=== PATIENT | female | born 1960 | race Hispanic/Latino ===

== ENCOUNTER 2017-02-21 10:45 | Emergency (ER) | payer MEDICAID, OTHER ==
[2017-02-21 10:56] VITALS: BMI 23.3
[2017-02-21 12:07] LABS: BASO % 0.5 % (0.0-2.0); EOS # 0.1 K/uL (0.0-0.7); EOS % 1.7 % (0.0-4.0); HEMATOCRIT 41.9 % (34.0-47.0); LYMPH # 1.3 K/uL (1.0-4.3); LYMPH % 22.4 % (20.0-40.0); MEAN CELL VOLUME 93.3 fl (81.0-99.0); MEAN CORPUSCULAR HGB CONC 33.2 g/dL (33.0-37.0); MEAN PLATELET VOLUME 7.9 fl (7.2-11.7); MONO # 0.6 K/uL (0.0-0.8); MONO % 10.3 % (0.0-10.0); NEUT # 3.9 K/uL (1.8-7.0); NEUT % 65.1 % (50.0-75.0); RED CELL DISTRIBUTION WIDTH 14.9 % (11.5-14.5)
[2017-02-21 12:46] LABS: ALB/GLOB RATIO 1.4 (1.0-2.1); ALKALINE PHOSPHATASE 68 U/L (38-126); ALT/SGPT 60 U/L (9-52); AST/SGOT 39 U/L (14-36); BILIRUBIN,TOTAL 0.7 mg/dl (0.2-1.3); BLOOD UREA NITROGEN 11 mg/dl (7-17); CALCIUM 9.6 mg/dL (8.4-10.2); CARBON DIOXIDE 25 mmol/L (22-30); CHLORIDE 103 mmol/L (98-107); GFR AFRICAN-AMERICAN > 60; GLUCOSE,RANDOM 169 mg/dL (65-105); POTASSIUM 3.8 MMOL/L (3.6-5.0); SODIUM 139 mmol/l (132-148); TOTAL PROTEIN 7.6 G/DL (6.3-8.2)
[2017-02-21 12:48] LABS: PARTIAL THROMBOPLASTIN TIME 33.9 Seconds (25.6-37.1)
[2017-02-21 13:13] VITALS: RESP 18; O2SAT 99
--- NOTE | 2017-02-21 13:29 | RAD ---
HISTORY: chest pain COMPARISON: No prior. TECHNIQUE: Chest PA and lateral FINDINGS: LUNGS: No active pulmonary disease. PLEURA: No significant pleural effusion identified. No pneumothorax apparent. CARDIOVASCULAR: Normal. OSSEOUS STRUCTURES: Thoracic dextroscoliosis. VISUALIZED UPPER ABDOMEN: Normal. OTHER FINDINGS: None. IMPRESSION: No active disease.
--- NOTE | 2017-02-21 13:45 | ED PDOC ---
HPI: Chest Pain Time Seen by Provider: 02/21/17 11:24 Chief Complaint (Nursing): Chest Pain Chief Complaint (Provider): Chest pain History Per: Patient History/Exam Limitations: no limitations Onset/Duration Of Symptoms: Days (x2 weeks) Current Symptoms Are (Timing): Intermittent Episodes Associated Symptoms: Dyspnea Additional Complaint(s): Darcy Hollins is a 57 year old female, with a past medical history of asthma and hypercholesterolemia, who present to the emergency department complaining of non radiating non exertional intermittent chest pain associated with difficulty breathing, and cough onset for 2 weeks. She states she has difficulty breathing particularly at night and that her doctor told her she has problems in the liver but she didn't get any treatment and wanted to get check for her liver too. She reports her doctor, Dr. Beckford has been given her medication for gastritis for months and that all her symptoms are long time chronic problems of her liver, gastritis, and epigastric tension. PMD: Gypsy Beckford Against Medical Advice - AMA Patient Left Against Medical Advice: The patient declines admission to the hospital and wishes to leave the Emergency Department. This action is against my medical advice. This decision was made with informed refusal. The patient was told that admission to the hospital is necessary. Explanation of the reasons why were discussed. The risks of leaving were explained to the patient and include, but are not limited to, worsening of known or currently unknown conditions, permanent disability and from undiagnosed or untreated conditions. The patient has the capacity to make this informed decision and understands my explanation of the current medical problem and risks of leaving. The patient voluntarily accepts these risks and signed an AMA form documenting our conversation. The patient was given the opportunity to ask questions and reconsider. The patient was encouraged to return to the Emergency Department at any time for further care. Past Medical History Reviewed: Historical Data, Nursing Documentation, Vital Signs Vital Signs: Last Vital Signs Temp 97.6 F 02/21/17 14:30 Pulse 87 02/21/17 16:48 Resp 18 02/21/17 14:30 BP 130/78 02/21/17 14:30 Pulse Ox 99 02/21/17 16:48 - Medical History PMH: Anxiety, HTN, Hypercholesterolemia - Family History Family History: States: Unknown Family Hx - Social History Current smoker - smoking cessation education provided: Yes (Heavy smoker >10 cigarettes daily) Alcohol: None Drugs: Denies - Immunization History Hx Tetanus Toxoid Vaccination: No Hx Influenza Vaccination: No Hx Pneumococcal Vaccination: No - Allergies Allergies/Adverse Reactions: Allergies Allergy/AdvReac Type Severity Reaction Status Date / Time No Known Allergies Allergy Unverified 10/17/14 16:50 Review of Systems ROS Statement: Except As Marked, All Systems Reviewed And Found Negative Cardiovascular: Positive for: Chest Pain Respiratory: Positive for: Other (dyspnea) Physical Exam - Reviewed Nursing Documentation Reviewed: Yes Vital Signs Reviewed: Yes - Physical Exam Appears: Positive for: Well, Non-toxic, No Acute Distress Head Exam: Positive for: ATRAUMATIC, NORMAL INSPECTION, NORMOCEPHALIC Skin: Positive for: Normal Color, Warm, Dry Eye Exam: Positive for: EOMI, Normal appearance, PERRL ENT: Positive for: Normal ENT Inspection Neck: Positive for: Normal, Painless ROM, Supple Cardiovascular/Chest: Positive for: Regular Rate, Rhythm. Negative for: Murmur Respiratory: Positive for: Normal Breath Sounds. Negative for: Respiratory Distress Gastrointestinal/Abdominal: Positive for: Bowel Sounds, Soft, Tenderness (mild epigastric tenderness) Back: Positive for: Normal Inspection. Negative for: L CVA Tenderness, R CVA Tenderness Extremity: Positive for: Normal ROM Neurologic/Psych: Positive for: Alert (x3), Oriented (x3). Negative for: Motor/ Sensory Deficits - Laboratory Results Result Diagrams: 02/21/17 12:00 02/21/17 12:00 - ECG ECG Rhythm: Positive for: Normal QRS, Normal ST Segment, Sinus Rhythm (Normal) Rate: 87 O2 Sat by Pulse Oximetry: 99 (RA) Pulse Ox Interpretation: Normal Medical Decision Making Medical Decision Making: Initial Impression: Chest pain dyspnea differential include ACS, rule out PE, CHF, and other cardiac pulmonary diseases Chronic Liver disease as additional diagnosis Initial Plan: --EKG --BNP --CXR --monitoring and evaluation advisor cont. --reevaluation 1327 Chest X-ray FINDINGS: LUNGS: No active pulmonary disease. PLEURA: No significant pleural effusion identified. No pneumothorax apparent. CARDIOVASCULAR: Normal. OSSEOUS STRUCTURES: Thoracic dextroscoliosis. VISUALIZED UPPER ABDOMEN: Normal. OTHER FINDINGS: None. Scribe Attestation: Documented by Napoleon Akbar, acting as a scribe for Jermaine Sal MD Provider Scribe Attestation: All medical record entries made by the Scribe were at my direction and personally dictated by me. I have reviewed the chart and agree that the record accurately reflects my personal performance of the history, physical exam, medical decision making, and the department course for this patient. I have also personally directed, reviewed, and agree with the discharge instructions and disposition. Disposition - Clinical Impression Clinical Impression: Chest pain, Left against medical advice - Patient ED Disposition Is Patient to be Admitted: No Doctor Will See Patient In The: Office Counseled Patient/Family Regarding: Studies Performed, Diagnosis, Need For Followup - Disposition Referrals: Gypsy Beckford MD [Family Provider] - Disposition: Against Medical Advice Disposition Time: 14:12 Condition: GOOD Additional Instructions: Return for worsening. Follow up with your PCP in 1-2 days. Instructions: Chest Pain (ED) Print Language: DANISH
[2017-02-21 14:41] VITALS: BP 130/78; TEMP 97.6
[2017-02-21 16:49] VITALS: PULSE 87
--- NOTE | 2017-02-22 23:09 | CARD ---
APPROVED REPORT EKG Measurement Heart [id number] <Conclusion> Sinus rhythm with short DE Otherwise normal ECG
== END 2017-02-21 14:41 | disposition home or self-care (01) ==
LOC: H.ER 10:45
DX: R05 Cough (principal); R07.9 Chest pain, unspecified; F17.210 Nicotine dependence, cigarettes, uncomplicated; I10 Essential (primary) hypertension; F41.9 Anxiety disorder, unspecified

== ENCOUNTER 2017-06-17 05:52 | Emergency (ER) | payer MEDICAID, OTHER ==
[2017-06-17 05:52] VITALS: BMI 23.3
[2017-06-17 06:16] VITALS: TEMP 97.8; O2SAT 98
--- NOTE | 2017-06-17 06:32 | ED PDOC ---
HPI: Back Time Seen by Provider: 06/17/17 06:25 Chief Complaint (Nursing): Back Pain Chief Complaint (Provider): low back pain History Per: Patient History/Exam Limitations: no limitations Onset/Duration Of Symptoms: Days (5), Gradual Current Symptoms Are (Timing): Still Present Quality Of Discomfort: Sharp Severity: Moderate Previous Symptoms: Back Pain Associated Symptoms: None Exacerbating Factor(s): Turning, Movement, Sitting, Standing Additional Complaint(s): 57yo female c/o low back pain R>L radiating to right leg. Pain sharp, taking motrin/flexeril without much relief. Was seen at 3 days ago and states medications are unhelpful. Denies fever, urinary symptoms, abdominal pain or trauma/falls. Past Medical History Reviewed: Historical Data, Nursing Documentation, Vital Signs Vital Signs: Last Vital Signs Temp 97.8 F 06/17/17 06:13 Pulse 73 06/17/17 06:13 Resp 18 06/17/17 06:13 BP 122/76 06/17/17 06:13 Pulse Ox 98 06/17/17 06:13 - Medical History PMH: Anxiety, HTN, Hypercholesterolemia - Surgical History Other surgeries: hysterectomy - Family History Family History: States: Unknown Family Hx - Social History Current smoker - smoking cessation education provided: No - Immunization History Hx Tetanus Toxoid Vaccination: No Hx Influenza Vaccination: No Hx Pneumococcal Vaccination: No - Home Medications Home Medications: Ambulatory Orders Medication Instructions Recorded Aspirin 325 mg PO DAILY 06/14/17 Atorvastatin [Lipitor] 10 mg PO DIN 06/14/17 Cyclobenzaprine [Flexeril] 10 mg PO TID #15 tab 06/14/17 Dexamethasone [Decadron] 12 mg PO ONCE #3 tab 06/14/17 Gabapentin [Neurontin] 300 mg PO TID #30 cap 06/14/17 Ibuprofen [Motrin] 600 mg PO Q6 #30 tab 06/14/17 Lidocaine 5% [Lidoderm] 1 ea TD PRN PRN #10 patch 06/14/17 Pantoprazole [Protonix] 40 mg PO DAILY 06/14/17 - Allergies Allergies/Adverse Reactions: Allergies Allergy/AdvReac Type Severity Reaction Status Date / Time No Known Allergies Allergy Verified 06/17/17 06:16 Review of Systems Constitutional: Negative for: Fever, Chills Cardiovascular: Negative for: Chest Pain, Palpitations Respiratory: Negative for: Cough, Shortness of Breath Gastrointestinal: Negative for: Nausea, Abdominal Pain Genitourinary Female: Negative for: Dysuria, Frequency Musculoskeletal: Positive for: Back Pain, Leg Pain. Negative for: Neck Pain, Arm Pain Skin: Negative for: Rash, Lesions, Jaundice Neurological: Negative for: Weakness, Numbness, Headache, Dizziness Physical Exam - Reviewed Nursing Documentation Reviewed: Yes Vital Signs Reviewed: Yes - Physical Exam Appears: Positive for: Well, Non-toxic Head Exam: Positive for: ATRAUMATIC, NORMAL INSPECTION Neck: Positive for: Normal, Painless ROM Cardiovascular/Chest: Positive for: Regular Rate, Rhythm. Negative for: Tachycardia Respiratory: Negative for: Respiratory Distress Gastrointestinal/Abdominal: Negative for: Tenderness Back: Positive for: Vertebral Tenderness (lumbar), Decreased ROM, Muscle Spasm ( lumbar R), Other (no erythema ) Extremity: Negative for: Normal ROM, Tenderness Neurologic/Psych: Positive for: Alert, filler wiper II-XII (intact), Oriented. Negative for: Motor/Sensory Deficits - ECG O2 Sat by Pulse Oximetry: 98 Medical Decision Making Medical Decision Making: given recurrent ED visits will obtain imaging spine, initiate tylenol PO, toradol IM and valium PO per STOP protocol [employer] database query reveals no narcotics obtained last [address]/[place] Disposition - Clinical Impression Clinical Impression: Back pain - Patient ED Disposition Is Patient to be Admitted: Transfer of Care - Disposition Disposition: Transfer of Care Disposition Time: 06:55 Condition: STABLE Forms: [employer] (Slovenian) Patient Signed Over To: Jermaine Sal Handoff Comments: pending UA, CT and re-eval/dispo
--- NOTE | 2017-06-17 07:45 | ED PDOC ---
- ECG O2 Sat by Pulse Oximetry: 98 (RA) Pulse Ox Interpretation: Normal - Progress Re-evaluation Time: 11:34 Condition: Re-examined, Improved Medical Decision Making Medical Decision Makin:00 Patient signed over from hTaddeus Royal DO to me, Jermaine Sal MD pending CT, urinalysis, and re-evaluation of pain/disposition. CT Lumbar: FINDINGS: VERTEBRAE: L2 superior endplate Schmorl node. No fracture. Normal alignment. DISCS/SPINAL CANAL/NEURAL FORAMINA: L1-2: Unremarkable. L2-3: Unremarkable. L3-4: Unremarkable. L4-5: Broad-based disc bulge and facet hypertrophy/ arthropathy causing mild central canal and mild bilateral neural foraminal stenosis. L5-S1: Broad-based disc bulge and facet hypertrophy/arthropathy causing mild central canal and mild to moderate bilateral neural foraminal stenosis. PARASPINAL SOFT TISSUES: Unremarkable. OTHER FINDINGS: None. IMPRESSION: Mild lower lumbar degenerative changes. Ordered: * Flexeril 10 mg PO * Percocet 5/325 mg Tab 1 tab PO Scribe Attestation: Documented by Jacinta Spencer, acting as a scribe for Jermaine Sal MD. Provider Scribe Attestation: All medical record entries made by the Scribe were at my direction and personally dictated by me. I have reviewed the chart and agree that the record accurately reflects my personal performance of the history, physical exam, medical decision making, and the department course for this patient. I have also personally directed, reviewed, and agree with the discharge instructions and disposition. Disposition Doctor Will See Patient In The: Office Counseled Patient/Family Regarding: Studies Performed, Diagnosis, Need For Followup - Clinical Impression Clinical Impression: Back pain, Arthritis of spine - POA Present On Arrival: None - Disposition Referrals: [facility] [Outside] Disposition: Routine/Home Disposition Time: 11:34 Condition: IMPROVED Additional Instructions: Take your medications as instructed. Follow up with your PCP in 2-3 days. Prescriptions: Naproxen 500 mg PO BID #20 tab oxyCODONE/Acetaminophen [Percocet 5/325 mg Tab] 1 ea PO Q6 PRN #10 tab PRN Reason: Pain, Severe (8-10) Instructions: Back Pain (ED) Print Language: CAPE VERDEAN
--- NOTE | 2017-06-17 08:44 | CT ---
PROCEDURE: CT Lumbar Spine without contrast HISTORY: Low back pain recurrent ED visits COMPARISON: None. TECHNIQUE: Axial computed tomography images were obtained of the lumbar spine without the use of intravenous contrast. Coronal and sagittal reformatted images were created and reviewed. Radiation dose: Total exam DLP = 492.3 mGy-cm. This CT exam was performed using one or more of the following dose reduction techniques: Automated exposure control, adjustment of the mA and/or kV according to patient size, and/or use of iterative reconstruction technique. FINDINGS: VERTEBRAE: L2 superior endplate Schmorl node. No fracture. Normal alignment. DISCS/SPINAL CANAL/NEURAL FORAMINA: L1-2: Unremarkable. L2-3: Unremarkable. L3-4: Unremarkable. L4-5: Broad-based disc bulge and facet hypertrophy/ arthropathy causing mild central canal and mild bilateral neural foraminal stenosis. L5-S1: Broad-based disc bulge and facet hypertrophy/arthropathy causing mild central canal and mild to moderate bilateral neural foraminal stenosis. PARASPINAL SOFT TISSUES: Unremarkable. OTHER FINDINGS: None. IMPRESSION: Mild lower lumbar degenerative changes.
[2017-06-17] MEDS ORDERED: Oxycodone/Acetaminophen 5/325 mg Tab PO STA (10:03)
[2017-06-17] MEDS ORDERED: Oxycodone/Acetaminophen 5/325 mg Tab ONE (10:23)
[2017-06-17 12:14] VITALS: BP 132/78; PULSE 78; RESP 16
== END 2017-06-17 12:14 | disposition home or self-care (01) ==
LOC: H.ER 05:52
DX: M54.5 Low back pain (principal)
CPT/HCPCS: 72131; 96372; 99282; J1885

== ENCOUNTER 2017-07-13 09:56 | Inpatient (IN) | payer MEDICAID, OTHER ==
[2017-07-13 09:56] VITALS: BMI 24.1
--- NOTE | 2017-07-13 10:48 | ED PDOC ---
HPI: Back Time Seen by Provider: 07/13/17 10:21 Chief Complaint (Nursing): Back Pain Chief Complaint (Provider): back pain History Per: Patient Additional Complaint(s): 57-year-old female with history of lower back pain presents to emergency department with persistent pain ongoing for 2 weeks. Patient was seen twice in May [address] lumbar spine ordered at that time demonstrated multilevel disc bulging. Patient has been taking ibuprofen, gabapentin and Flexeril but has not received any pain relief with these medications. She denies radiation of pain. She denies any bowel or bladder dysfunction. Patient was seen yesterday by primary doctor and was advised to return to emergency department for further evaluation of intractable pain. Past Medical History Reviewed: Historical Data, Nursing Documentation, Vital Signs Vital Signs: Last Vital Signs Temp 97.1 F L 07/13/17 10:28 Pulse 84 07/13/17 10:28 Resp 18 07/13/17 10:28 BP 132/91 H 07/13/17 10:28 Pulse Ox 99 07/13/17 10:28 - Medical History PMH: Anxiety, Arthritis, Gastritis, Hypercholesterolemia - Surgical History Surgical History: Endoscopy Other surgeries: hysterectomy, abdominoplasty, breast augmentation - Family History Family History: States: No Known Family Hx - Living Arrangements Living Arrangements: With Family - Social History Current smoker - smoking cessation education provided: Yes Alcohol: Social Drugs: Denies - Home Medications Home Medications: Ambulatory Orders Medication Instructions Recorded Aspirin 81 mg PO DAILY 06/14/17 Atorvastatin [Lipitor] 10 mg PO DAILY 06/14/17 Pantoprazole [Protonix] 40 mg PO DAILY 06/14/17 Multivitamin [Daily Octavio] 1 tab PO DAILY 06/30/17 Cyclobenzaprine HCl 5 mg PO HS 07/13/17 [Cyclobenzaprine HCl] - Allergies Allergies/Adverse Reactions: Allergies Allergy/AdvReac Type Severity Reaction Status Date / Time No Known Allergies Allergy Verified 07/13/17 10:27 Review of Systems ROS Statement: Except As Marked, All Systems Reviewed And Found Negative Constitutional: Negative for: Fever Cardiovascular: Negative for: Chest Pain Respiratory: Negative for: Cough Gastrointestinal: Negative for: Nausea, Vomiting Genitourinary Female: Negative for: Dysuria, Frequency, Incontinence, Hematuria Musculoskeletal: Positive for: Back Pain Physical Exam - Reviewed Nursing Documentation Reviewed: Yes Vital Signs Reviewed: Yes - Physical Exam Appears: Positive for: Well Skin: Negative for: Rash Eye Exam: Negative for: Normal appearance Cardiovascular/Chest: Positive for: Regular Rate, Rhythm Respiratory: Positive for: Normal Breath Sounds Gastrointestinal/Abdominal: Positive for: Soft. Negative for: Tenderness Back: Positive for: Vertebral Tenderness (Diffuse tenderness to thoracic and lumbar regions, negative bilateral straight leg raise). Negative for: L CVA Tenderness, R CVA Tenderness Extremity: Positive for: Normal ROM. Negative for: Pedal Edema, Calf Tenderness Neurologic/Psych: Positive for: Alert, Oriented, Gait (unable to assess, patient cannot ambulate due to low back pain) - Laboratory Results Result Diagrams: 07/13/17 12:25 07/13/17 12:25 - ECG Interpretation Of ECG: SR 72 bpm with short GA, reviewed by PA and ED attending. O2 Sat by Pulse Oximetry: 99 Pulse Ox Interpretation: Normal - Other Rad CXR X-Ray: Interpreted by Me, Viewed By Me X-Ray Interpretation: no acute finding Renal US X-Ray: Read By Radiologist X-Ray Interpretation: see below Medical Decision Making Medical Decision Makin-year-old with persistent low back pain. Case was discussed with primary doctor, Dr. Beckford. Patient with intractable back pain ongoing for 2 weeks with 2 previous ED visits for same. Oral meds not helping with pain. Patient will be admitted for intractable pain, inability to ambulate. CBC CMP UA Renal US CXR EKG IVF IV toradol IV morphine IV valium IV zofran IV solumedrol Patient is aware of and agrees with admission. US: non-obstructing small 5 mm calculus lower pole left kidney, otherwise unremarkable study. Disposition - Clinical Impression Clinical Impression: Intractable back pain - Patient ED Disposition Is Patient to be Admitted: Yes - Disposition Disposition Time: 11:20 Condition: FAIR Results - Lab Results Lab Results: 07/13/17 11:41 Urine Color Light yellow Urine Clarity Clear Urine pH 7.0 Ur Specific Max 1.005 Urine Protein Negative Urine Glucose (UA) Neg Urine Ketones Negative Urine Blood Negative Urine Nitrate Negative Urine Bilirubin Negative Urine Urobilinogen 0.2-1.0 Ur Leukocyte Esterase Neg Urine RBC (Auto) 1 Urine Microscopic WBC < 1 Ur Squamous Epith Cells < 1 Urine Bacteria Few H 07/13/17 07/13/17 07/13/17 12:25 12:25 11:41 WBC 5.9 RBC 4.32 Hgb 13.1 Hct 39.1 MCV 90.6 D MCH 30.3 MCHC 33.4 RDW 13.8 Plt Count 221 MPV 7.1 L Neut % (Auto) 59.7 Lymph % (Auto) 24.0 [place] % (Auto) 9.4 Eos % (Auto) 6.3 H Baso % (Auto) 0.6 Neut # 3.5 Lymph # 1.4 [place] # 0.6 Eos # 0.4 Baso # 0.0 Sodium 142 Potassium 4.2 Chloride 107 Carbon Dioxide 25 Anion Gap 14 BUN 7 Creatinine 0.7 Est GFR ( Amer) > 60 Est GFR (Non-Af Amer) > 60 Random Glucose 110 H Calcium 9.5 Total Bilirubin 0.5 AST 31 ALT 40 Alkaline Phosphatase 65 Total Protein 7.3 Albumin 4.1 Globulin 3.2 Albumin/Globulin Ratio 1.3 Urine Color Light yellow Urine Clarity Clear Urine pH 7.0 Ur Specific Max 1.005 Urine Protein Negative Urine Glucose (UA) Neg Urine Ketones Negative Urine Blood Negative Urine Nitrate Negative Urine Bilirubin Negative Urine Urobilinogen 0.2-1.0 Ur Leukocyte Esterase Neg Urine RBC (Auto) 1 Urine Microscopic WBC < 1 Ur Squamous Epith Cells < 1 Urine Bacteria Few H
[2017-07-13] MEDS ORDERED: diaZEpam 10 mg/2 ml Inj IV STA (11:11)
[2017-07-13] MEDS ORDERED: Sodium Chloride 0.9% 1,000 ML IV STA (11:11)
[2017-07-13 11:51] LABS: SQUAMOUS EPITHIAL < 1 /hpf (0-5); URINE BACTERIA FEW (<OCC); URINE BILIRUBIN NEGATIVE (NEGATIVE); URINE BLOOD NEGATIVE (NEGATIVE); URINE CLARITY CLEAR (Clear); URINE GLUCOSE (UA) NEG (Normal); URINE LEUKOCYTE ESTERASE NEG Leu/uL (Negative); URINE NITRATE NEGATIVE (NEGATIVE); URINE PROTEIN NEGATIVE (NEGATIVE); URINE UROBILINOGEN 0.2-1.0 mg/dL (0.2-1.0)
[2017-07-13 11:56] LABS: URINE COLOR LIGHT YELLOW (YELLOW)
[2017-07-13] MEDS ORDERED: Morphine 4 MG/ML VIAL ONE (12:22)
[2017-07-13 12:31] LABS: BASO % 0.6 % (0.0-2.0); EOS # 0.4 K/uL (0.0-0.7); EOS % 6.3 % (0.0-4.0); HEMOGLOBIN 13.1 g/dL (12.0-16.0); LYMPH # 1.4 K/uL (1.0-4.3); MEAN CELL VOLUME 90.6 fl (81.0-99.0); MEAN CORPUSCULAR HEMOGLOBIN 30.3 pg (27.0-31.0); MEAN CORPUSCULAR HGB CONC 33.4 g/dL (33.0-37.0); MEAN PLATELET VOLUME 7.1 fl (7.2-11.7); MONO # 0.6 K/uL (0.0-0.8); MONO % 9.4 % (0.0-10.0); NEUT # 3.5 K/uL (1.8-7.0); NEUT % 59.7 % (50.0-75.0); RBC 4.32 Mil/uL (3.80-5.20); RED CELL DISTRIBUTION WIDTH 13.8 % (11.5-14.5); WHITE BLOOD COUNT 5.9 K/uL (4.8-10.8)
[2017-07-13 12:42] LABS: ALB/GLOB RATIO 1.3 (1.0-2.1); ALBUMIN 4.1 g/dL (3.5-5.0); ALT/SGPT 40 U/L (9-52); AST/SGOT 31 U/L (14-36); BLOOD UREA NITROGEN 7 mg/dl (7-17); CALCIUM 9.5 mg/dL (8.4-10.2); GFR AFRICAN-AMERICAN > 60; GFR NON-AFRICAN AMERICAN > 60
--- NOTE | 2017-07-13 13:59 | US ---
PROCEDURE: Ultrasound of the Kidneys HISTORY: back pain COMPARISON: None available. TECHNIQUE: Sonogram of the kidneys. FINDINGS: RIGHT KIDNEY: Measures: 5.4 x 6.4 x 10.8 cm. Normal in size, contour and echogenicity. No stone, solid mass lesion or hydronephrosis visualized. LEFT KIDNEY: Measures: 5.3 x 5.4 x 11 cm. Normal in size, contour and echogenicity. Echogenic focus lower pole 4 x 5 x 6 mm which may represent a small stone which does not shadow. Exophytic cyst lower pole 2.6 cm. Renal cortical cyst 6 mm. OTHER FINDINGS: None. IMPRESSION: Nonobstructing small, 5 mm calculus lower pole left kidney. Otherwise unremarkable study.
[2017-07-13] MEDS ORDERED: Pneumococcal 23-Valent Vaccine IM ONE (14:39)
[2017-07-13] MEDS ORDERED: Influenza Vaccine 18yr & older 0.5 ML/45 MCG SYR IM ONE (14:43)
--- NOTE | 2017-07-13 14:46 | RAD ---
HISTORY: admit COMPARISON: 02/21/2017 FINDINGS: LUNGS: No active pulmonary disease. PLEURA: No significant pleural effusion identified, no pneumothorax apparent. CARDIOVASCULAR: Normal. OSSEOUS STRUCTURES: Thoracic dextroscoliosis VISUALIZED UPPER ABDOMEN: Normal. OTHER FINDINGS: None. IMPRESSION: No active disease.
--- NOTE | 2017-07-13 17:08 | RAD ---
PROCEDURE: Radiographs of the Lumbar Spine. HISTORY: back pain COMPARISON: No prior. FINDINGS: BONES: Normal alignment. No listhesis. Marked osteopenia impeding optimal evaluation for any potential fractures. No vertebral body fractures resulting in loss of vertebral body height greater than 40 percent suggested. Probable Schmorl's node like indentations of multiple lumbar levels DISC SPACES: Unremarkable. OTHER FINDINGS: L4-5 L5-S1 bilateral facet hypertrophic arthrosis -. Moderately distended bladder suggested IMPRESSION: Marked generalized osteopenia limiting optimal evaluation for fracture detection. Gross fracture appreciated Facet hypertrophic arthrosis
[2017-07-13] MEDS: Methocarbamol 750 MG TAB PO SCH (20:43)
[2017-07-13] MEDS ORDERED: Lidocaine 5% Patch TD STA (22:53)
--- NOTE | 2017-07-14 08:07 | CP.PCM.CON ---
History of Present Illness - History of Present Illness History of Present Illness: Patient was admitted for intractable pain and referred for pain management. She denies any trauma or injuries prior to the onset of pain, but has been suffering from the pain for 2 weeks. At home she was taking Advil, Tylenol every 4 hours for this pain. She's been examined in the ER a couple of times, record showed a lumbar CT about 3 weeks ago which revealed L4-5, L5-S1 disc bulges with stenoses. Patient denies having MRI's. Patient is currently lying on her left side, in severe pain and moderate distress. The pain is sharp, across the lower lumbar region and sacrum, with some radiation down the lateral thighs to the knees. She denies numbness/ weakness in the legs or urinary/bowel incontinence. Toradol helped with her pain last night, but she's insistent on having pain and not receiving pain medications. Past Patient History - Past Medical History & Family History Past Medical History?: Yes - Past Social History Smoking Status: Light Smoker < 10 Cigarettes Daily - CARDIAC Hx Hypercholesterolemia: Yes - PULMONARY Hx Respiratory Disorders: No - NEUROLOGICAL Hx Neurological Disorder: No - HEENT Hx HEENT Problems: No - RENAL Hx Chronic Kidney Disease: No - ENDOCRINE/METABOLIC Hx Endocrine Disorders: Yes Hx Diabetes Mellitus Type 2: Yes - HEMATOLOGICAL/ONCOLOGICAL Hx Blood Disorders: No - INTEGUMENTARY Hx Dermatological Problems: No - MUSCULOSKELETAL/RHEUMATOLOGICAL Hx Arthritis: Yes Hx Falls: No - GASTROINTESTINAL Hx Gastritis: Yes - GENITOURINARY/GYNECOLOGICAL Hx Genitourinary Disorders: No - PSYCHIATRIC Hx Anxiety: Yes Hx Substance Use: No - SURGICAL HISTORY Hx Surgeries: Yes Hx Hysterectomy: Yes Other/Comment: Breast reduction, TUMMY TUCK - ANESTHESIA Hx Anesthesia: Yes Hx Anesthesia Reactions: No Hx Malignant Hyperthermia: No Meds Allergies/Adverse Reactions: Allergies Allergy/AdvReac Type Severity Reaction Status Date / Time No Known Allergies Allergy Verified 07/13/17 10:27 - Medications Medications: Current Medications Atorvastatin Calcium (Lipitor) 10 mg PO DAILY [facility] Gabapentin (Neurontin) 300 mg PO TID [facility] Ketorolac Tromethamine (Toradol) 30 mg IVP Q8 PRN PRN Reason: Pain, severe (8-10) Last Admin: 07/14/17 00:42 Dose: 30 mg Methocarbamol (Robaxin) 750 mg PO Q12H [facility] Last Admin: 07/13/17 20:43 Dose: 750 mg Morphine Sulfate (Morphine) 2 mg IVP Q4 PRN PRN Reason: Pain, severe (8-10) Multivitamins/Minerals (Therapeutic-M Tab) 1 tab PO DAILY [facility] Nicotine (Nicoderm Cq) 1 patch TD DAILY [facility] Last Admin: 07/13/17 16:28 Dose: 1 patch Pantoprazole Sodium (Protonix Ec Tab) 40 mg PO DAILY [facility] Physical Exam - Constitutional Appears: In Acute Distress - Cardiovascular Exam Cardiovascular Exam: REGULAR RHYTHM - GI/Abdominal Exam GI & Abdominal Exam: Normal Bowel Sounds - Back Exam Back exam: paraspinal tenderness, vertebral tenderness Additional comments: Positive SLR's bilaterally at 40 deg. Results - Vital Signs Recent Vital Signs: Last Vital Signs Temp 97.8 F 07/13/17 23:54 Pulse 92 H 07/13/17 23:54 Resp 18 07/13/17 23:54 BP 126/89 07/13/17 23:54 Pulse Ox 96 07/13/17 23:54 - Labs Result Diagrams: 07/13/17 12:25 07/13/17 12:25 Labs: Laboratory Results - last 24 hr 07/13/17 07/13/17 07/13/17 11:41 12:25 12:25 WBC 5.9 RBC 4.32 Hgb 13.1 Hct 39.1 MCV 90.6 D MCH 30.3 MCHC 33.4 RDW 13.8 Plt Count 221 MPV 7.1 L Neut % (Auto) 59.7 Lymph % (Auto) 24.0 [place] % (Auto) 9.4 Eos % (Auto) 6.3 H Baso % (Auto) 0.6 Neut # 3.5 Lymph # 1.4 [place] # 0.6 Eos # 0.4 Baso # 0.0 Sodium 142 Potassium 4.2 Chloride 107 Carbon Dioxide 25 Anion Gap 14 BUN 7 Creatinine 0.7 Est GFR ( Amer) > 60 Est GFR (Non-Af Amer) > 60 Random Glucose 110 H Calcium 9.5 Total Bilirubin 0.5 AST 31 ALT 40 Alkaline Phosphatase 65 Total Protein 7.3 Albumin 4.1 Globulin 3.2 Albumin/Globulin Ratio 1.3 Urine Color Light yellow Urine Clarity Clear Urine pH 7.0 Ur Specific [place] 1.005 Urine Protein Negative Urine Glucose (UA) Neg Urine Ketones Negative Urine Blood Negative Urine Nitrate Negative Urine Bilirubin Negative Urine Urobilinogen 0.2-1.0 Ur Leukocyte Esterase Neg Urine RBC (Auto) 1 Urine Microscopic WBC < 1 Ur Squamous Epith Cells < 1 Urine Bacteria Few H Assessment & Plan (1) Intractable back pain Assessment and Plan: 57 yo woman w/ intractable pain. Lumbar CT revealed disc bulges with mild to moderate foraminal stenoses. Findings are not consistent with her clinical presentation. Although this could be due to her low tolerance to pain and personality, additional pathologies will need to be ruled out with a MRI. Further recommendation can be made based on MRI findings. - MRI of lumbar spine - start Morphine IV 2mg PRN - start Neurontin 300mg q8h - continue Robaxin and Toradol - PT eval once pain is better controlled - if MRI is done in a timely fashion, and injection is warranted, we may be able to do it today; if MRI is delayed, then injection will have to wait until Monday - NPO, hold anticoagulation for now Status: Acute
[2017-07-14] MEDS: Morphine 4 MG/ML VIAL IVP PRN ×4 (08:55→21:17)
[2017-07-14] MEDS: Methocarbamol 750 MG TAB PO SCH ×2 (08:59→20:04)
[2017-07-14] MEDS: Pantoprazole 40 mg EC Tab PO SCH (08:59)
[2017-07-14] MEDS ORDERED: Patient's Own Med (Multivitamin [Daily Vite] 1 TAB) PO SCH (09:00)
[2017-07-14] MEDS: Multivitamin With Minerals Tab PO SCH (09:11)
[2017-07-14] MEDS: guaiFENesin 100 mg/5 ml Syrup UD PO PRN (13:34)
--- NOTE | 2017-07-14 14:13 | CP.PCM.PN ---
Subjective - Date & Time of Evaluation Date of Evaluation: 07/14/17 Time of Evaluation: 14:00 - Subjective Subjective: Patient refused to undergo MRI due to anxiety and claustrophobia. She requested open MRI only. She's feeling better with the current regimen. After discussion with the patient, she agreed to discharge with medications and open MRI as an outpatient. She can follow up with outpatient pain clinic after MRI with Dr. Bauer. Objective - Vital Signs/Intake and Output Vital Signs (last 24 hours): Temp Pulse Resp BP Pulse Ox 97.5 F L 75 18 130/88 98 07/14/17 08:16 07/14/17 08:16 07/14/17 08:16 07/14/17 08:16 07/14/17 08:16 - Medications Medications: Current Medications Atorvastatin Calcium (Lipitor) 10 mg PO DAILY [facility] Last Admin: 07/14/17 09:11 Dose: 10 mg Gabapentin (Neurontin) 300 mg PO TID [facility] Last Admin: 07/14/17 12:58 Dose: 300 mg Guaifenesin (Robitussin) 100 mg PO Q6 PRN PRN Reason: Cough Last Admin: 07/14/17 13:34 Dose: 100 mg Ketorolac Tromethamine (Toradol) 30 mg IVP Q8 PRN PRN Reason: Pain, severe (8-10) Last Admin: 07/14/17 00:42 Dose: 30 mg Lactulose (Enulose) 20 gm PO DAILY PRN PRN Reason: Constipation Last Admin: 07/14/17 13:06 Dose: 20 gm Methocarbamol (Robaxin) 750 mg PO Q12H [facility] Last Admin: 07/14/17 08:59 Dose: 750 mg Morphine Sulfate (Morphine) 2 mg IVP Q4 PRN PRN Reason: Pain, severe (8-10) Last Admin: 07/14/17 12:57 Dose: 2 mg Multivitamins/Minerals (Therapeutic-M Tab) 1 tab PO DAILY [facility] Last Admin: 07/14/17 09:11 Dose: 1 tab Nicotine (Nicoderm Cq) 1 patch TD DAILY [facility] Last Admin: 07/14/17 08:59 Dose: 1 patch Pantoprazole Sodium (Protonix Ec Tab) 40 mg PO DAILY [facility] Last Admin: 07/14/17 08:59 Dose: 40 mg - Labs Labs: 07/13/17 12:25 07/13/17 12:25 Assessment and Plan (1) Intractable back pain Assessment & Plan: 57 yo woman w/ intractable pain. Pain is better managed currently. - patient can be discharged on Ibuprofen 800mg q8h PRN, Neurontin 300mg q8h ATC , and Tramadol 50mg q6h PRN - patient needs outpatient MRI and pain management. Status: Acute
--- NOTE | 2017-07-14 17:10 | MRI ---
PROCEDURE: MR LUMBAR SPINE WITHOUT CONTRAST HISTORY: intractable pain COMPARISON: None available. TECHNIQUE: Multiecho multiplanar sequences were performed through the lumbar spine without the use of intravenous contrast. FINDINGS: Normal lumbar curvature is appreciated without spondylolisthesis. A prominent right central central endplate collapse with local edema throughout the [place] of the mid to upper L2 vertebral body is appreciated further as compared to a small Schmorl node developing at the upper endplate of L2 on 06/17/[address] No fragmentation of the vertebral bodies identified. Similar process is occurring at L4 and L5 though only limited edema is seen deep to the upper endplate regions. No prevertebral or paraspinal edema is appreciated throughout. No additional suspicious matter signal findings. Conus medullaris appears normal terminating at the inferior endplate of L1. T12-L1: No disc herniation, spinal canal stenosis or neural foraminal narrowing. L1-2: No disc herniation, spinal canal stenosis or neural foraminal narrowing. L2-3: No disc herniation, spinal canal stenosis or neural foraminal narrowing. A small left L2 nerve root cysts identified at the distal left L2 neural foramen. L3-4: No disc herniation, spinal canal stenosis or neural foraminal narrowing. Moderate facet joint degenerative changes have developed without prominent stenosis resulting. L4-5: Facet joint degenerative arthropathy appears to combined with limited asymmetric disc bulging or left lateral disc herniation cause left lateral recess stenosis but no significant right hemicanal stenosis. No significant neural foraminal stenosis. No large disc herniation. L5-S1: No disc herniation, spinal canal stenosis or neural foraminal narrowing. Prominent facet joint degenerative changes are appreciated causing left greater than right lateral recess stenosis without generalized central canal stenosis. No disc herniation. Borderline bilateral neural foraminal stenoses. OTHER FINDINGS: None. IMPRESSION: 1. Other collapse of the right central upper endplate L2 with prominent local edema reflecting potential acute or subacute collapse compared to prior lumbar spine CT 06/17/2017. A similar but lesser collapse seen of the upper endplate of L4 and L5 with limited edema history reflecting additional acute subacute fractures on a limited basis. No interval spondylolisthesis. 2. Limited inferior lumbar degenerative spinal stenosis. At L4-5 generalized disc bulge is asymmetric versus limited left lateral disc herniation. No severe stenosis encountered throughout.
--- NOTE | 2017-07-14 18:12 | CARD ---
APPROVED REPORT EKG Measurement Heart [id number] TX [id number] <Conclusion> Sinus rhythm with sinus arrhythmia with short TX Otherwise normal ECG
[2017-07-14] MEDS ORDERED: Lidocaine 5% Patch TD ONE (22:18)
[2017-07-15] MEDS: Morphine 4 MG/ML VIAL IVP PRN ×4 (04:03→21:32)
[2017-07-15] MEDS: guaiFENesin 100 mg/5 ml Syrup UD PO PRN ×3 (04:04→21:32)
[2017-07-15] MEDS: Pantoprazole 40 mg EC Tab PO SCH (08:12)
[2017-07-15] MEDS: Multivitamin With Minerals Tab PO SCH (08:55)
[2017-07-15] MEDS: Methocarbamol 750 MG TAB PO SCH ×2 (08:55→21:32)
--- NOTE | 2017-07-15 15:50 | PN ---
DATE: 07/15/2017 DAILY PROGRESS NOTE SUBJECTIVE: The patient is seen today, 07/15/2017. She is still having low back pain. Patient had an MRI done yesterday. PHYSICAL EXAMINATION: VITAL SIGNS: Blood pressure is 139/71, temperature 98.4, respiratory rate 20 and pulse 70. HEENT: Pupils equal, reactive to light. Normal-appearing mucosa of the conjunctivae, oropharyngeal and nasal membrane mucosa. NECK: Supple. No JVD, no carotid bruit, no lymph node, no thyromegaly. CHEST AND LUNGS: Bilateral symmetrical expansion. Good air exchange. No rales, no rhonchi. CARDIOVASCULAR SYSTEM: PMI not localized. S1, S2. No additional sounds. ABDOMEN: Normoactive bowel sounds. No tenderness, no organomegaly, no masses. EXTREMITIES: No cyanosis, no clubbing, no edema. CENTRAL NERVOUS SYSTEM: Alert, awake, oriented x2. No neurological deficits could be appreciated. LABORATORY DATA: MRI was done and it shows evidence of [id number] fractures on the L2 with local edema. Spinal stenosis at L4-L5 with generalized disk bulge, is asymmetric with possible disk herniation. ASSESSMENT: Degenerative spine disease with spinal stenosis as well as L2, L4 and L5 [id number] collapse. PLAN: We will do spine surgery consult. Continue pain management and we will add also Miacalcin. Gypsy Beckford MD
--- NOTE | 2017-07-15 16:28 | CP.PCM.PN ---
Subjective - Date & Time of Evaluation Date of Evaluation: 07/15/17 Time of Evaluation: 16:22 - Subjective Subjective: 57 y o female with complain of low back pain which she states started 2 weeks ago, but was admitted 06/17/17 for this complaint At that time she had a CT showing superior end plate fracture of L2 and L4 She now has an MRI showing this as well as edema in the L2 and L4 vertebral bodies Although it is difficult to compare two different types of studies the degree on compression at both fracture sites appear the same She is scheduled for interventional pain management on Monday There is nothing surgical to do at this time, as we are only about 30 days out. She should be in a winters brace when oob I ordered one for her. She should contact my office after discharge if the pain does not remit in another month or worsens sooner. This type of problem is best treated conservatively unless she is refractory to treatment Objective - Vital Signs/Intake and Output Vital Signs (last 24 hours): Temp Pulse Resp BP Pulse Ox 98.4 F 69 20 110/76 97 07/15/17 16:14 07/15/17 16:14 07/15/17 16:14 07/15/17 16:14 07/15/17 16:14 - Medications Medications: Current Medications Atorvastatin Calcium (Lipitor) 10 mg PO DAILY [facility] Last Admin: 07/15/17 08:55 Dose: 10 mg Calcitonin [place] (Miacalcin) 1 intlu COLLEEN DAILY [facility] Gabapentin (Neurontin) 300 mg PO TID [facility] Last Admin: 07/15/17 13:19 Dose: 300 mg Guaifenesin (Robitussin) 100 mg PO Q6 PRN PRN Reason: Cough Last Admin: 07/15/17 13:20 Dose: 100 mg Ketorolac Tromethamine (Toradol) 30 mg IVP Q8 PRN PRN Reason: Pain, severe (8-10) Last Admin: 07/14/17 00:42 Dose: 30 mg Lactulose (Enulose) 20 gm PO DAILY PRN PRN Reason: Constipation Last Admin: 07/14/17 13:06 Dose: 20 gm Methocarbamol (Robaxin) 750 mg PO Q12H [facility] Last Admin: 07/15/17 08:55 Dose: 750 mg Morphine Sulfate (Morphine) 2 mg IVP Q4 PRN PRN Reason: Pain, severe (8-10) Last Admin: 07/15/17 13:18 Dose: 2 mg Multivitamins/Minerals (Therapeutic-M Tab) 1 tab PO DAILY [facility] Last Admin: 07/15/17 08:55 Dose: 1 tab Nicotine (Nicoderm Cq) 1 patch TD DAILY [facility] Last Admin: 07/15/17 08:55 Dose: 1 patch Pantoprazole Sodium (Protonix Ec Tab) 40 mg PO DAILY [facility] Last Admin: 07/15/17 08:12 Dose: 40 mg - Labs Labs: 07/13/17 12:25 07/13/17 12:25
--- NOTE | 2017-07-16 00:55 | HP ---
This is a late entry for history and physical done on 07/14/2017. HISTORY OF PRESENT ILLNESS: Patient is a 57-year-old female with history of multiple medical problems, was admitted for intractable pain in the lower back. Patient had two emergency room visits as well as an outpatient office visit for the same. As patient failed outpatient management, patient presented to emergency room on the day of admission and was admitted for intractable back pain. Pain management consultation was called and patient's symptoms has been worsening over a period of 2 weeks. Patient had a lumbar CAT scan done in one of the emergency room visits that showed multilevel disc bulges at the lumbar spine. Pain intensity was nine out of ten that interrupts patient's sleep and function and it radiates to the lateral thighs as well as to the knees, but she denies any numbness, weakness of the legs, or any urinary or bowel incontinence. REVIEW OF SYSTEMS: Other review of system is negative. ALLERGIES: NO KNOWN ALLERGY. HOME MEDICATIONS: As per MAR. PAST MEDICAL HISTORY: Gastroesophageal reflux disease, hypercholesterolemia, degenerative joint and spine disease. SOCIAL HISTORY: Positive for smoking. No EtOH or substance abuse. FAMILY HISTORY: Noncontributory. PHYSICAL EXAMINATION: GENERAL: Patient is in mild distress at the time of this examination due to the continuous pain in spite of the analgesics and muscle relaxants being given. VITAL SIGNS: Blood pressure 116/68, temperature 98.3, respiratory rate 20, and pulse 75. HEENT: Pupils equal, reactive to light. Normal-appearing mucosa of the conjunctivae, oropharynx, and nasal membrane mucosa. NECK: Supple. No JVD. No carotid bruit. No lymph node. No thyromegaly. CHEST AND LUNGS: Bilateral symmetrical expansion. Good air exchange. No rales, no rhonchi. CARDIOVASCULAR SYSTEM: PMI not localized. S1, S2. No additional sounds. ABDOMEN: Normoactive bowel sounds. No tenderness. No organomegaly. No masses. EXTREMITIES: No cyanosis, no clubbing, no edema. CENTRAL NERVOUS SYSTEM: Alert, awake, oriented x2. No neurological deficit could be appreciated. ASSESSMENT: Intractable back pain with multilevel lumbar spine disc bulge. PLAN: Continue current pain management and muscle relaxant and follow pain management recommendations. [facility] MD Shakeel [facility] # [id number]
[2017-07-16] MEDS: Morphine 4 MG/ML VIAL IVP PRN ×4 (01:54→19:55)
[2017-07-16] MEDS: Pantoprazole 40 mg EC Tab PO SCH (08:07)
[2017-07-16] MEDS: Multivitamin With Minerals Tab PO SCH (08:07)
[2017-07-16] MEDS: guaiFENesin 100 mg/5 ml Syrup UD PO PRN ×3 (08:08→19:55)
[2017-07-16] MEDS: Methocarbamol 750 MG TAB PO SCH ×2 (08:08→20:00)
[2017-07-16] MEDS: Calcitonin 200 Int Units/Inh Nasal Spray (3.7 ml) NAS SCH (12:26)
[2017-07-17] MEDS: Morphine 4 MG/ML VIAL IVP PRN ×3 (00:07→10:23)
--- NOTE | 2017-07-17 02:31 | PN ---
DATE: 07/16/2017 SUBJECTIVE: Patient is seen today, 07/16/2017. She is not in any cardiopulmonary distress. Patient's back pain is slightly improving. PHYSICAL EXAMINATION: VITAL SIGNS: Blood pressure 114/74, temperature 98.5, respiratory rate 20, and pulse is 86. HEENT: Pupils equal, reactive to light. Normal-appearing mucosa of the conjunctivae, oropharynx, and nasal membrane mucosa. NECK: Supple. No JVD. No carotid bruit. No lymph node. No thyromegaly. CHEST AND LUNGS: Bilateral symmetrical expansion. Good air exchange. No rales, no rhonchi. CARDIOVASCULAR SYSTEM: PMI not localized. S1 and S2. No additional sounds. ABDOMEN: Normoactive bowel sounds. No tenderness, no organomegaly, no masses. EXTREMITIES: No cyanosis. No clubbing. No edema. CENTRAL NERVOUS SYSTEM: Alert, awake, oriented x3. No neurological deficit could be appreciated. ASSESSMENT: 1. Multilevel herniated nucleus pulposus. 2. Lumbar compression vertebral fracture. 3. Hypercholesterolemia. PLAN: Continue pain management. Follow Neuro surgery and pain management recommendations. [facility] MD Shakeel
[2017-07-17] MEDS: Methocarbamol 750 MG TAB PO SCH ×2 (08:48→20:14)
[2017-07-17] MEDS: Pantoprazole 40 mg EC Tab PO SCH (08:48)
[2017-07-17] MEDS: Multivitamin With Minerals Tab PO SCH (08:48)
[2017-07-17] MEDS: Calcitonin 200 Int Units/Inh Nasal Spray (3.7 ml) NAS SCH (09:08)
[2017-07-17 10:01] LABS: HEMOGLOBIN 13.7 g/dL (12.0-16.0); MEAN CELL VOLUME 89.8 fl (81.0-99.0); MEAN CORPUSCULAR HEMOGLOBIN 29.5 pg (27.0-31.0); MEAN CORPUSCULAR HGB CONC 32.8 g/dL (33.0-37.0); RBC 4.67 Mil/uL (3.80-5.20); RED CELL DISTRIBUTION WIDTH 13.9 % (11.5-14.5); WHITE BLOOD COUNT 7.4 K/uL (4.8-10.8)
--- NOTE | 2017-07-17 10:03 | CP.PCM.PN ---
Subjective - Date & Time of Evaluation Date of Evaluation: 07/17/17 Time of Evaluation: 09:00 - Subjective Subjective: Patient was seen walking the hallway after administration of medications. She' s agreeable to an injection. MRI revealed L2 and L5, as well as mild L4, superior end-plate fractures, which wasn't clearly demonstrated on CT or X-ray. Patient likely has osteopenia but denies recent falls that would've contributed to the fractures. MRI also showed diffuse facet hypertrophy and mild disc bulges but no overt stenosis. Goal is to perform injection to treat facet hypertrophy/arthritis and monitor the patient as an outpatient for potential kyphoplasty. Patient has been seen by neurosurgery as well but is not deemed a surgical candidate. Objective - Vital Signs/Intake and Output Vital Signs (last 24 hours): Temp Pulse Resp BP Pulse Ox 97.8 F 72 20 132/81 98 07/17/17 08:47 07/17/17 08:47 07/17/17 08:47 07/17/17 08:47 07/17/17 08:47 - Medications Medications: Current Medications Atorvastatin Calcium (Lipitor) 10 mg PO DAILY [facility] Last Admin: 07/17/17 08:48 Dose: Not Given Calcitonin [place] (Miacalcin) 1 intlu COLLEEN DAILY [facility] Last Admin: 07/17/17 09:08 Dose: 1 unit Gabapentin (Neurontin) 300 mg PO TID [facility] Last Admin: 07/17/17 08:48 Dose: Not Given Guaifenesin (Robitussin) 100 mg PO Q6 PRN PRN Reason: Cough Last Admin: 07/16/17 19:55 Dose: 100 mg Ketorolac Tromethamine (Toradol) 30 mg IVP Q8 PRN PRN Reason: Pain, severe (8-10) Last Admin: 07/14/17 00:42 Dose: 30 mg Lactulose (Enulose) 20 gm PO DAILY PRN PRN Reason: Constipation Last Admin: 07/14/17 13:06 Dose: 20 gm Methocarbamol (Robaxin) 750 mg PO Q12H [facility] Last Admin: 07/17/17 08:48 Dose: Not Given Morphine Sulfate (Morphine) 2 mg IVP Q4 PRN PRN Reason: Pain, severe (8-10) Last Admin: 07/17/17 05:49 Dose: 2 mg Multivitamins/Minerals (Therapeutic-M Tab) 1 tab PO DAILY [facility] Last Admin: 07/17/17 08:48 Dose: Not Given Nicotine (Nicoderm Cq) 1 patch TD DAILY [facility] Last Admin: 07/17/17 09:08 Dose: 1 patch Pantoprazole Sodium (Protonix Ec Tab) 40 mg PO DAILY [facility] Last Admin: 07/17/17 08:48 Dose: Not Given - Labs Labs: 07/13/17 12:25 07/13/17 12:25 Assessment and Plan (1) Intractable back pain Assessment & Plan: 57 yo woman w/ lumbar spondylosis, and likely osteopenic fractures. Patient will undergo facet treatment later on today and may be discharged on medications with outpatient neurosurgical and pain management follow-up. - facet injection today - increase NEurontin to 400mg q8h - patient should be discharged on Neurontin, Robaxin, and Tramadol - PT eval for possible discharge - outpatient pain management Status: Acute
[2017-07-17 10:17] LABS: BLOOD UREA NITROGEN 14 mg/dl (7-17); CALCIUM 10.1 mg/dL (8.4-10.2); GFR AFRICAN-AMERICAN > 60; GFR NON-AFRICAN AMERICAN > 60
[2017-07-17] MEDS ORDERED: Bupivacaine HCl 0.5% PF (10 ml) Inj ONE (12:21)
[2017-07-17] MEDS ORDERED: MethylPREDNISolone Depo 40 mg/ml Inj ONE (12:21)
[2017-07-17] MEDS ORDERED: Lidocaine 1% Inj (20ml) ONE (12:22)
[2017-07-17] MEDS ORDERED: Propofol 10 mg/ml Inj (20 ML) ONE (12:29)
[2017-07-17] MEDS ORDERED: Lidocaine 1% 5ml Abboject IV ONE (12:29)
[2017-07-17] MEDS ORDERED: Lactated Ringer's 1,000 ML IV ONE (12:45)
[2017-07-17] MEDS ORDERED: HYDROmorphone 0.5 mg/0.5 ml ISec IVP PRN (12:46)
[2017-07-17] MEDS ORDERED: MethylPREDNISolone Depo 40 mg/ml Inj IM ONE (12:47)
[2017-07-17] MEDS ORDERED: Lidocaine 1% Inj (20ml) IJ ONE (12:47)
[2017-07-17] MEDS ORDERED: Bupivacaine HCl 0.5% PF (10 ml) Inj IJ ONE (12:47)
[2017-07-17] MEDS ORDERED: Lactated Ringer's 1,000 ML IV SCH (13:00)
[2017-07-17] MEDS: guaiFENesin 100 mg/5 ml Syrup UD PO PRN ×2 (16:24→23:10)
[2017-07-17] MEDS ORDERED: Chlorhexidine Gluconate 1 APPL/PKT TP ONE (19:31)
--- NOTE | 2017-07-17 23:30 | PN ---
DATE: 07/17/2017 DAILY PROGRESS NOTE SUBJECTIVE: Patient is seen today, 07/17/2017. She is for epidural injection today, and she is waiting for the brace that was ordered by Neurosurgery. OBJECTIVE: VITAL SIGNS: Blood pressure 147/71, temperature 97.8, respiratory rate 20, and pulse 79. HEENT: Pupils equal, reactive to light. Normal-appearing mucosa of the conjunctivae, oropharynx, and nasal membrane mucosa. NECK: Supple. No JVD. No carotid bruit. No lymph node. No thyromegaly. CHEST AND LUNGS: Bilateral symmetrical expansion. Good air exchange. No rales, no rhonchi. CARDIOVASCULAR SYSTEM: PMI not localized. S1 and S2. No additional sounds. ABDOMEN: Normoactive bowel sounds. No tenderness. No organomegaly. No masses. EXTREMITIES: No cyanosis, no clubbing, no edema. CENTRAL NERVOUS SYSTEM: Alert, awake, oriented x3. No neurological deficit could be appreciated. ASSESSMENT: 1. Multiple vertebral compression fractures. 2. Multiple herniated discs with severe intractable back pain. PLAN: Patient is for epidural injection and follow Neurosurgery recommendations. Continue pain management. Gypsy Beckford MD
--- NOTE | 2017-07-18 01:02 | OP ---
PROCEDURE DATE: 07/17/2017 PREOPERATIVE DIAGNOSIS: Lumbar facet hypertrophy. POSTOPERATIVE DIAGNOSIS: Lumbar facet hypertrophy. PROCEDURE: Bilateral L3, L4 and L5 medial nerve block. ANESTHESIOLOGIST: Fredrick Smith MD. SURGEON: Viet Jacobo MD. TYPE OF ANESTHESIA: Monitored anesthesia care. COMPLICATIONS: None. SPECIMEN: None. DESCRIPTION OF PROCEDURE: As follows: After we had discussion of the procedure with the patient including its risks, benefits, alternatives, outcome data and possibility of no effect or increased pain, patient consented to the procedure. She denies any recent infection, bleeding tendencies or being on anticoagulants, a decision was then made to proceed to the OR. The patient was placed on a fluoroscopy table in a prone position with 2 pillows underneath her abdomen. The back was prepped and draped in a usual sterile fashion and a sterile technique was adhered to during the entire procedure. Before the patient was administered the sedation, she reported pain mainly around the L4 and L5 regions and this extended to the bilateral paraspinal regions. There was minimal pain around the L2 region. The L3, L4 and L5 medial branch nerves are located at the intersection of the superior articular process and the transverse process of the L4 and L5 pedicle along with the sacral ala. The procedure was first performed on the right by turning the fluoroscopy towards the right at approximately 15 degrees. The skin overlying the three above target areas were then infiltrated with 1% lidocaine using 25-gauge needle. Subsequently a 22-gauge 2.5 inch spinal needle was then incrementally advanced under fluoroscopic guidance until the tip of needle made bony contact with all three target areas. After satisfactory positioning of the three needles, approximately 3 mL of a 0.5% Marcaine and Depo-Medrol mixture was injected. The needle was then removed and same exact procedure was performed on the contralateral left side using the same medications and techniques. At the end of the case, patient's back was cleaned and dried and bandages were applied. The patient was then transferred to the recovery area in good conditions without any signs of [employer] toxicity or any neurological deficits. She will have a followup in the office in approximately 2 to 4 weeks. She may be discharged from the floor today if pain is adequately controlled. Viet Jacobo MD
[2017-07-18 08:15] VITALS: BP 102/60; PULSE 66; RESP 20; TEMP 97.6; O2SAT 99
[2017-07-18] MEDS: Pantoprazole 40 mg EC Tab PO SCH (08:22)
[2017-07-18] MEDS: Calcitonin 200 Int Units/Inh Nasal Spray (3.7 ml) NAS SCH (08:22)
[2017-07-18] MEDS: guaiFENesin 100 mg/5 ml Syrup UD PO PRN (08:23)
[2017-07-18] MEDS: Methocarbamol 750 MG TAB PO SCH (08:23)
[2017-07-18] MEDS: Multivitamin With Minerals Tab PO SCH (08:23)
--- NOTE | 2017-07-18 09:06 | RAD ---
PROCEDURE: Fluoroscopy up to 1 hr. HISTORY: Pain management COMPARISON: None TECHNIQUE: Standard protocol for this study/examination. FINDINGS: Total fluoroscopic time (continuous mode) utilized during the procedure: 22.2 seconds. Total exam DLP: (mGy): 4.17. IMPRESSION: Submitted images from the current procedure: 2.0
[2017-07-18] MEDS ORDERED: Alum-Mag Hydrox-Simethicone Susp (30 mL) PO ONE (10:16)
--- NOTE | 2017-07-18 22:50 | DS ---
REASON FOR ADMISSION: This is a 57-year-old female with history of multiple medical problems, who was admitted for intractable back pain that failed outpatient treatment. COURSE OF HOSPITALIZATION: The patient was admitted to medical floor and she had a pain management consultation done. The patient had an MRI that showed also acute compression fracture of the 2 lumbar vertebrae. Decision was to give the patient a brace and the patient had epidural injection and was discharged home in a stable condition to follow up with pain management as well as Neurosurgery. FINAL DIAGNOSES: 1. Intractable back pain secondary to multiple disk bulging in the lumbar area. 2. Compression fracture of lumbar vertebrae. PLAN: The patient will follow up with both Pain Management and Neurosurgery. Kaylee MD Shakeel
== END 2017-07-18 11:52 | disposition home or self-care (01) | DRG 243 ==
LOC: H.ER 09:56 → H.ERHOLD 12:02 → H.MEDSURG1 14:11
PROVIDERS: ADMIT Internal Medicine; ATTEND Internal Medicine
PROC: 3E0234Z Introduction of Serum, Toxoid and Vaccine into Muscle, Percutaneous Approach (ICD-10-PCS; 2017-07-14)
PROC: 3E0R33Z Introduction of Anti-inflammatory into Spinal Canal, Percutaneous Approach (ICD-10-PCS; 2017-07-17)
PROC: 3E0R3BZ Introduction of Anesthetic Agent into Spinal Canal, Percutaneous Approach (ICD-10-PCS; principal; 2017-07-17 10:45)
DX: M48.061 Spinal stenosis, lumbar region without neurogenic claudication (principal); M48.56XA Collapsed vertebra, not elsewhere classified, lumbar region, initial encounter for fracture; M51.26 Other intervertebral disc displacement, lumbar region; E11.9 Type 2 diabetes mellitus without complications; M19.90 Unspecified osteoarthritis, unspecified site; K21.9 Gastro-esophageal reflux disease without esophagitis; E78.00 Pure hypercholesterolemia, unspecified; F40.240 Claustrophobia; K29.70 Gastritis, unspecified, without bleeding; F17.210 Nicotine dependence, cigarettes, uncomplicated; Z23 Encounter for immunization; Z79.82 Long term (current) use of aspirin

== ENCOUNTER 2017-09-10 09:43 | Emergency (ER) | payer OTHER ==
[2017-09-10 09:43] VITALS: BMI 24.1
[2017-09-10 09:49] VITALS: PULSE 97; RESP 19; O2SAT 98
[2017-09-10] MEDS ORDERED: Morphine 4 MG/ML VIAL IM STA (10:32)
--- NOTE | 2017-09-10 10:49 | ED PDOC ---
Upper Extremity Pain/Injury Chief Complaint (Nursing): Upper Extremity Problem/Injury History Per: Patient History/Exam Limitations: no limitations Onset/Duration Of Symptoms: Days (2) Additional Complaint(s): 57 yo F reports she slipped and fell outside yesterday, c/o R rib pain, worse with movement, palpation, deep breathing, and R arm pain. Otherwise: (-) head injury, (-) loss of consciousness, (+) nausea secondary to pain, (-) vomiting, ( -) severe headache, (-) other injury, (-) neck pain, (-) back pain, (-) abdominal pain, (-) SOB, (-) other complaints. Past Medical History Vital Signs: Last Vital Signs Temp 98.1 F 09/10/17 09:46 Pulse 97 H 09/10/17 09:46 Resp 19 09/10/17 09:46 BP 164/95 H 09/10/17 09:46 Pulse Ox 98 09/10/17 09:46 - Medical History PMH: Anxiety, Arthritis, Gastritis, HTN, Hypercholesterolemia Denies: Chronic Kidney Disease - Surgical History Surgical History: Endoscopy - Family History Family History: States: Unknown Family Hx - Immunization History Hx Tetanus Toxoid Vaccination: No Hx Influenza Vaccination: No Hx Pneumococcal Vaccination: No - Home Medications Home Medications: Ambulatory Orders Medication Instructions Recorded Aspirin 81 mg PO DAILY 06/14/17 Atorvastatin [Lipitor] 10 mg PO DAILY 06/14/17 Pantoprazole [Protonix EC Tab] 40 mg PO DAILY 06/14/17 traMADol [Ultram] 50 mg PO TID PRN #15 tab 09/10/17 - Allergies Allergies/Adverse Reactions: Allergies Allergy/AdvReac Type Severity Reaction Status Date / Time No Known Allergies Allergy Verified 07/13/17 10:27 Review of Systems Constitutional: Negative for: Fever, Chills, Malaise Cardiovascular: Positive for: Chest Pain (R rib pain s/p fall). Negative for: Palpitations, Orthopnea Respiratory: Negative for: Cough, Shortness of Breath Gastrointestinal: Positive for: Nausea (secondary to R rib pain). Negative for : Vomiting, Abdominal Pain Genitourinary Female: Negative for: Dysuria, Frequency Musculoskeletal: Positive for: Arm Pain (R arm pain s/p fall). Negative for: Neck Pain, Back Pain, Hand Pain Skin: Negative for: Rash Neurological: Negative for: Weakness, Numbness, Headache, Dizziness Physical Exam - Physical Exam Comments: GENERALIZED APPEARANCE: Patient is AAO x 3 in moderate painful distress. SKIN: Warm, dry; (-) cyanosis. HEAD: (-) swelling and tenderness. EYES: (-) conjunctival pallor, (-) scleral icterus, (-) nystagmus. ENMT: Mucous membranes moist. (-) Wallace's sign. Nose: (-) tenderness. No oral trauma. Pharynx clear. Airway patent: (-) stridor. Full ROM of mandible without pain. NECK: (-) tenderness, (-) stiffness, (-) lymphadenopathy. CHEST AND RESPIRATORY: (-) chest wall tenderness. Lungs: (-) rales, (-) rhonchi , (-)wheezes; breath sounds equal bilaterally. HEART AND CARDIOVASCULAR: (-) irregularity; (-) murmur, (-) gallop. ABDOMEN AND GI: Soft; (-) tenderness. BACK: (-) tenderness. EXTREMITIES: (-) deformity, (-) tenderness, (-) limitation of motion NEURO AND PSYCH: GCS=15. Mental status as above. 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 EOMI. (-) facial asymmetry. Tongue and uvula midline. Strength 5/5 in allextremities. No gross sensory deficits. - ECG O2 Sat by Pulse Oximetry: 98 Medical Decision Making Medical Decision Making: Impression : Rib pain and R arm pain, r/o rib fracture and fracture of the humerus Plan : -Morphine 4 mg IM -Zofran 4 mg ODT PO -XR R ribs -XR R humerus XR R ribs : no fracture, no pneumothorax, as read by ARLENE. XR R humerus : no fracture, no dislocation, as read by ARLENE. On re-evaluation, patient reports improvement of symptoms, denies any SOB. Patient laying in bed comfortably in no acute distress. X-ray results discussed with the patient in great detail. Diagnosis of rib and arm contusion d/w the patient. Based on history, exam and diagnostic results, plan will be for outpatient follow up. Patient instructed to follow-up with pmd in 1-2 days without fail. Advised to take medication as prescribed. Return to the emergency room at any time for any new or worsening symptoms. Patient states she fully agrees with and understands discharge instructions. States that she agrees with the plan and disposition. Verbalized and repeated discharge instructions and plan. I have given the patient opportunity to ask any additional questions. Disposition - Clinical Impression Clinical Impression: Contusion of rib on right side, Contusion of arm, right - Patient ED Disposition Is Patient to be Admitted: No Counseled Patient/Family Regarding: Studies Performed, Diagnosis, Need For Followup, Rx Given - Disposition Disposition: Routine/Home Disposition Time: 11:30 Condition: STABLE Additional Instructions: Thank you for letting us take care of you today. You were treated for R rib contusion, R arm contusion. The emergency medical care you received today was directed at your acute symptoms. If you were prescribed any medication, please fill it and take as directed. It may take several days for your symptoms to resolve. Return to the Emergency Department if your symptoms worsen, do not improve, or if you have any other problems. Please contact your doctor in 2 days for re-evaluation and follow up. Bring any paperwork you were given at discharge with you along with any medications you are taking to your follow up visit. Our treatment cannot replace ongoing medical care by a primary care provider (PCP) outside of the emergency department. Thank you for allowing the [facility] team to be part of your care today. 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
[2017-09-10] MEDS ORDERED: Morphine 4 MG/ML VIAL ONE (10:50)
--- NOTE | 2017-09-10 11:22 | RAD ---
PROCEDURE: Radiographs of the right humerus. HISTORY: trauma COMPARISON: None. FINDINGS: BONES: Frontal lateral views of the right humerus were performed. No fracture is seen. No lytic process is noted. Very mild degenerative changes are seen in the right shoulder. Right elbow is unremarkable. Limited visualization of the right ribs are intact. No erosion or periosteal reaction is seen. SOFT TISSUES: Normal. OTHER FINDINGS: None. IMPRESSION: No appreciable fracture of the right humerus.
--- NOTE | 2017-09-10 11:27 | RAD ---
PROCEDURE: Radiographs of the Chest and Right Ribs. HISTORY: pain COMPARISON: None available. TECHNIQUE: Frontal radiograph of the chest and multiple oblique radiographs of the right ribs were obtained. FINDINGS: RIGHT RIBS: Frontal and oblique views of the right ribs were performed. No appreciable rib fracture is noted. No pneumothorax is seen. Visualized right scapula is intact. Degenerative changes are seen in the spine without obvious compression fracture. Right clavicle and right shoulder are otherwise unremarkable. LUNGS: When compared to the prior study dated 07/13/2017, there is mild increase in linear subsegmental atelectasis at the right lung base. There is also some lesser degree increase in linear subsegmental atelectasis and/or scarring at the left lung base. Right hemidiaphragm is unchanged with mild eventration. No upper lobe infiltrates are seen. PLEURA: No pleural effusion or pneumothorax. CARDIOVASCULAR: Heart is unchanged in size. No CHF is seen. OTHER FINDINGS: None. IMPRESSION: No appreciable right rib fracture. No pneumothorax. Mild new areas of linear density at the lung bases suggesting subsegmental atelectasis.
[2017-09-10 12:24] VITALS: BP 120/70; TEMP 98
== END 2017-09-10 12:24 | disposition home or self-care (01) ==
LOC: H.ER 09:43
DX: S20.211A Contusion of right front wall of thorax, initial encounter (principal); S40.021A Contusion of right upper arm, initial encounter; I10 Essential (primary) hypertension; Z79.82 Long term (current) use of aspirin; W01.0XXA Fall on same level from slipping, tripping and stumbling without subsequent striking against object, initial encounter
CPT/HCPCS: 71101; 73060; 96372; 99283; J2270

== ENCOUNTER 2018-02-09 10:04 | Emergency (ER) | payer MEDICAID, OTHER ==
[2018-02-09 10:05] VITALS: BMI 24.1
[2018-02-09] MEDS ORDERED: DiphenhydrAMINE 50 mg/ml Inj IVP STA (10:48)
--- NOTE | 2018-02-09 10:52 | ED PDOC ---
HPI: Skin/Bite Injury Time Seen by Provider: 02/09/18 10:14 Chief Complaint (Nursing): Abnormal Skin Integrity Chief Complaint (Provider): Allergic reaction History Per: Patient Additional Complaint(s): 57 yo female, denies any PMH, presents to ED for adverse reaction. 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 Pt was seen and evaluated by her PMD, was prescribed virgilio, which she has been taking without relief. resp. is easy. speech is clear. Past Medical History Reviewed: Historical Data, Nursing Documentation, Vital Signs Vital Signs: Last Vital Signs Temp 98.4 F 02/09/18 10:32 Pulse 93 H 02/09/18 10:32 Resp 20 02/09/18 10:32 BP 151/93 H 02/09/18 10:32 Pulse Ox 99 02/09/18 10:51 - Medical History PMH: Anxiety, Arthritis, Gastritis, HTN, Hypercholesterolemia Denies: Chronic Kidney Disease - Surgical History Surgical History: Endoscopy - Family History Family History: States: Unknown Family Hx - Living Arrangements Living Arrangements: With Family - Social History Current smoker - smoking cessation education provided: No Alcohol: None Drugs: Denies - Immunization History Hx Tetanus Toxoid Vaccination: No Hx Influenza Vaccination: No Hx Pneumococcal Vaccination: No - Home Medications Home Medications: Ambulatory Orders Medication Instructions Recorded RX: Aspirin 81 mg PO DAILY 06/14/17 RX: Atorvastatin [Lipitor] 10 mg PO DAILY 06/14/17 RX: Pantoprazole [Protonix EC Tab] 40 mg PO DAILY 06/14/17 Methylprednisolone [Medrol Dose 4 mg PO DAILY #21 mg 02/09/18 Pack (21 tabs)] RX: DiphenhydrAMINE [Benadryl] 50 mg PO Q4 PRN #30 cap 02/09/18 - Allergies Allergies/Adverse Reactions: Allergies Allergy/AdvReac Type Severity Reaction Status Date / Time No Known Allergies Allergy Verified 07/13/17 10:27 Review of Systems ROS Statement: Except As Marked, All Systems Reviewed And Found Negative Skin: Positive for: Rash Physical Exam - Reviewed Nursing Documentation Reviewed: Yes Vital Signs Reviewed: Yes - Physical Exam Appears: Positive for: Well, Non-toxic, No Acute Distress Head Exam: Positive for: ATRAUMATIC, NORMAL INSPECTION, NORMOCEPHALIC Skin: Positive for: Warm, Rash (erythema noted to hairline and upper eyelids) Eye Exam: Positive for: EOMI, Normal appearance, PERRL ENT: Positive for: Normal ENT Inspection Neck: Positive for: Normal, Painless ROM Cardiovascular/Chest: Positive for: Regular Rate, Rhythm Respiratory: Positive for: CNT, Normal Breath Sounds Gastrointestinal/Abdominal: Positive for: Normal Exam, Soft Back: Positive for: Normal Inspection Extremity: Positive for: Normal ROM Neurologic/Psych: Positive for: Alert, Oriented - ECG O2 Sat by Pulse Oximetry: 99 Medical Decision Making Medical Decision Making: Medicated with IV Benadryl, Solumedrol and Pepcid Pt on re-eval reports feeling proved. Pruritus has diminished, edema noticeably reduced as well. Pt stable for discharge at this time Disposition - Clinical Impression Clinical Impression: Allergic reaction - Disposition Disposition: Routine/Home Disposition Time: 12:31 Condition: STABLE Prescriptions: RX: DiphenhydrAMINE [Benadryl] 50 mg PO Q4 PRN #30 cap PRN Reason: Rash Methylprednisolone [Medrol Dose Pack (21 tabs)] 4 mg PO DAILY #21 mg Instructions: Drug Allergy Forms: [employer] ([place]ian)
[2018-02-09] MEDS ORDERED: DiphenhydrAMINE 50 mg/ml Inj ONE (11:01)
[2018-02-09 12:37] VITALS: BP 140/80; PULSE 79; RESP 19; TEMP 97; O2SAT 98
== END 2018-02-09 12:38 | disposition home or self-care (01) ==
LOC: H.ER 10:04
DX: T78.40XA Allergy, unspecified, initial encounter (principal); E78.00 Pure hypercholesterolemia, unspecified; F41.9 Anxiety disorder, unspecified; I10 Essential (primary) hypertension
CPT/HCPCS: 96374; 96375; 99282; J1200; J2930

== ENCOUNTER 2018-09-19 09:36 | Emergency (ER) | payer MEDICAID ==
[2018-09-19 09:49] VITALS: TEMP 97.8; O2SAT 97; BMI 24.7
[2018-09-19] MEDS ORDERED: Lidocaine 5% Patch TD STA (10:37)
--- NOTE | 2018-09-19 10:41 | ED PDOC ---
Lower Extremity Pain/Injury Time Seen by Provider: 09/19/18 10:15 Chief Complaint (Nursing): Hip Pain Chief Complaint (Provider): Hip pain History Per: Patient History/Exam Limitations: no limitations Additional Complaint(s): Pt reports L hip pain radiating down to knee X 3 days, took Tylenol with codeine without relief, worse with ambulation. Denies trauma, paresthesias, weakness. Past Medical History Reviewed: Nursing Documentation, Vital Signs Vital Signs: Last Vital Signs Temp 97.8 F 09/19/18 09:48 Pulse 82 09/19/18 09:48 Resp 17 09/19/18 09:48 BP 134/80 09/19/18 09:48 Pulse Ox 97 09/19/18 09:48 - Medical History PMH: Anxiety, Arthritis, Gastritis, HTN, Hypercholesterolemia Denies: Chronic Kidney Disease - Surgical History Surgical History: Endoscopy - Family History Family History: States: Unknown Family Hx - Immunization History Hx Tetanus Toxoid Vaccination: No Hx Influenza Vaccination: No Hx Pneumococcal Vaccination: No - Home Medications Home Medications: Ambulatory Orders Medication Instructions Recorded Aspirin 81 mg PO DAILY 06/14/17 Atorvastatin [Lipitor] 10 mg PO DAILY 06/14/17 Pantoprazole [Protonix EC Tab] 40 mg PO DAILY 06/14/17 DiphenhydrAMINE [Benadryl] 50 mg PO Q4 PRN #30 cap 02/09/18 Methylprednisolone [Medrol Dose 4 mg PO DAILY #21 mg 02/09/18 Pack (21 tabs)] Lidocaine 5% [Lidoderm] 1 ea TD DAILY PRN #10 patch 09/19/18 - Allergies Allergies/Adverse Reactions: Allergies Allergy/AdvReac Type Severity Reaction Status Date / Time No Known Allergies Allergy Verified 07/13/17 10:27 Review of Systems Constitutional: Negative for: Fever Musculoskeletal: Positive for: Leg Pain, Other (Hip pain) Skin: Negative for: Rash, Lesions Neurological: Negative for: Weakness, Numbness Physical Exam - Reviewed Nursing Documentation Reviewed: Yes Vital Signs Reviewed: Yes - Physical Exam Appears: Positive for: Uncomfortable Skin: Positive for: Normal Color, Warm, Dry Back: Positive for: Normal Inspection. Negative for: L CVA Tenderness, R CVA Tenderness, Vertebral Tenderness, Decreased ROM, Muscle Spasm Extremity: Positive for: Normal ROM, Tenderness (L hip). Negative for: Pedal Edema, Calf Tenderness, Deformity, Swelling Neurological/Psych: Positive for: Awake, Alert, Oriented - ECG O2 Sat by Pulse Oximetry: 97 Medical Decision Making Medical Decision Makin yo female with acute on chronic L hip pain. - XR L hip - Lidoderm patch - Toradol Accession No. : [id number] Patient Name / ID : TRISTEN Bonilla / [id number] Exam Date : 09/19/2018 10:30:53 ( Approved ) Study Comment : Sex / Age : F / [id number] Creator : Laureen Palafox Dictator : Laureen Palafox Clinical Dermatologist : Prism Measurer : Laureen Palafox Approver2 : Report Date : 09/19/2018 12:45:10 My Comment : * Date of service: 09/19/2018 PROCEDURE: HISTORY: Pain COMPARISON: None TECHNIQUE: AP pelvis and frog's leg view. FINDINGS: . No fracture or lytic lesion seen. Mild degenerative type appearing subchondral appearing cystic are probable. Bilateral hip symmetrical joint space narrowing. Left L5-S1 asymmetrical hypertrophic facet arthrosis. Sacroiliac and pubic symphyseal joints unremarkable. Right eggshell type calcifications project lateral to the right greater trochanter-injection gluteal granulomas or right trochanteric calcific bursitis are some considerations. Patient's symptomatology is left-sided. IMPRESSION: No fracture or dislocation. Degenerative changes as above. Other findings as above. Pt feels better, able to ambulate. Disposition - Clinical Impression Clinical Impression: Hip pain - Disposition Disposition: Routine/Home Disposition Time: 13:00 Condition: IMPROVED Additional Instructions: FOLLOW-UP WITH PMD WITHIN 2 DAYS FOR REEVALUATION. Prescriptions: Lidocaine 5% [Lidoderm] 1 ea TD DAILY PRN #10 patch PRN Reason: Pain, Mild (1-3) Instructions: Hip Pain Forms: [employer] (Citizen Of [place]) Print Language: HUNGARIAN
[2018-09-19] MEDS ORDERED: Lidocaine 5% Patch TD ONE (10:45)
--- NOTE | 2018-09-19 12:48 | RAD ---
Date of service: 09/19/2018 PROCEDURE: HISTORY: Pain COMPARISON: None TECHNIQUE: AP pelvis and frog's leg view. FINDINGS: . No fracture or lytic lesion seen. Mild degenerative type appearing subchondral appearing cystic are probable. Bilateral hip symmetrical joint space narrowing. Left L5-S1 asymmetrical hypertrophic facet arthrosis. Sacroiliac and pubic symphyseal joints unremarkable. Right eggshell type calcifications project lateral to the right greater trochanter-injection gluteal granulomas or right trochanteric calcific bursitis are some considerations. Patient's symptomatology is left-sided. IMPRESSION: No fracture or dislocation. Degenerative changes as above. Other findings as above.
[2018-09-19 13:58] VITALS: BP 130/82; PULSE 80; RESP 18
== END 2018-09-19 13:57 | disposition home or self-care (01) ==
LOC: H.ER 09:36
DX: M25.552 Pain in left hip (principal); I10 Essential (primary) hypertension; Z79.82 Long term (current) use of aspirin
CPT/HCPCS: 73503; 96372; 99283; J1885

== ENCOUNTER 2018-10-23 14:07 | Emergency (ER) | payer MEDICAID ==
[2018-10-23 14:09] VITALS: TEMP 99.3
[2018-10-23 14:10] VITALS: BMI 24.1
[2018-10-23 15:09] LABS: BASO % 0.6 % (0.0-2.0); EOS # 0.1 K/uL (0.0-0.7); EOS % 1.3 % (0.0-4.0); HEMOGLOBIN 14.6 g/dL (12.0-16.0); LYMPH # 1.9 K/uL (1.0-4.3); MEAN CELL VOLUME 91.7 fl (81.0-99.0); MEAN CORPUSCULAR HGB CONC 32.7 g/dL (33.0-37.0); MEAN PLATELET VOLUME 7.1 fl (7.2-11.7); MONO # 0.9 K/uL (0.0-0.8); MONO % 10.4 % (0.0-10.0); NEUT # 5.6 K/uL (1.8-7.0); NEUT % 65.7 % (50.0-75.0); RBC 4.85 Mil/uL (3.80-5.20); RED CELL DISTRIBUTION WIDTH 14.8 % (11.5-14.5); WHITE BLOOD COUNT 8.5 K/uL (4.8-10.8)
[2018-10-23] MEDS ORDERED: Sodium Chloride 0.9% 1,000 ML IV SCH (15:15)
--- NOTE | 2018-10-23 15:17 | ED PDOC ---
Lower Extremity Pain/Injury Time Seen by Provider: 10/23/18 14:26 Chief Complaint (Nursing): Anxiety Chief Complaint (Provider): Anxiety History Per: Dentistry Professor ([id number]) Current Symptoms Are (Timing): Still Present Additional Complaint(s): Patient is an 58 year old female with a past medical history of HTN, HLD and DM, who presents to the emergency department complaining of left leg pain and high blood pressure. She states she as at a pharmacy earlier today when she started to feel dizzy and had some sweating. A lady working at the pharmacy checked her blood pressure and found it to be quite high. She was instructed by the lady to come to the ED to get evaluated but was not told what her blood pressure reading was. Patient states she is not feeling any dizziness currently but does have some anxiety with severe left leg pain. She has gone to the clinic for her pain because the pain is so severe she can not sleep. The pain is located in her hips and radiates down to her toes, she does not know of the diagnosis but states the pain has been present for about x1 month. Patient reports she was here x2-3 wee ks ago and was told to go to a pain management doctor. During her visit she was given Toradol and got a Rx for a lidoderm patch. Patient currently sees a pain management doctor who prescribed her Tylenol number 4. Her next appointment is on October 25. Patient has been complaint with her medication for her medical problems. She has been using her sister's cane to walk around and does so very slowly. Her last dose of her Tylenol medication was today morning at 9am. She states she has x3 doses left and has an appointment to see her doctor an October 25. But reports the Tylenol has not been working right now and she just needs something to help her pain to get to her appointment. Pt denies chest pain, headache, changes in vision, numbness or tingling, SOB, leg swelling, recent travel, prolonged immobilization, hormone use, bleeding disorders or h/o clots. Pt also denies any recent injuries or falls since she was last seen here. PMD: Dr. Beckford Neurologist/pain management: Ranjith Fitch Past Medical History Reviewed: Historical Data, Nursing Documentation, Vital Signs Vital Signs: Last Vital Signs Temp 99.3 F 10/23/18 14:09 Pulse 124 H 10/23/18 14:09 Resp 19 10/23/18 14:09 BP 141/98 H 10/23/18 14:09 Pulse Ox 98 10/23/18 14:09 Primary Care Provider: Gypsy Beckford - Medical History PMH: Anxiety, Arthritis, Gastritis, HTN, Hypercholesterolemia Denies: Chronic Kidney Disease - Surgical History Surgical History: Endoscopy - Family History Family History: States: Unknown Family Hx - Social History Current smoker - smoking cessation education provided: Yes Alcohol: Occasional Drugs: Denies - Immunization History Hx Tetanus Toxoid Vaccination: No Hx Influenza Vaccination: No Hx Pneumococcal Vaccination: No - Home Medications Home Medications: Ambulatory Orders Medication Instructions Recorded Aspirin 81 mg PO DAILY 06/14/17 Atorvastatin [Lipitor] 10 mg PO DAILY 06/14/17 Pantoprazole [Protonix EC Tab] 40 mg PO DAILY 06/14/17 DiphenhydrAMINE [Benadryl] 50 mg PO Q4 PRN #30 cap 02/09/18 Methylprednisolone [Medrol Dose 4 mg PO DAILY #21 mg 02/09/18 Pack (21 tabs)] Lidocaine 5% [Lidoderm] 1 ea TD DAILY PRN #10 patch 09/19/18 - Allergies Allergies/Adverse Reactions: Allergies Allergy/AdvReac Type Severity Reaction Status Date / Time No Known Allergies Allergy Verified 10/23/18 14:13 Review of Systems Constitutional: Positive for: Sweats (not currently). Negative for: Fever Cardiovascular: Negative for: Chest Pain Musculoskeletal: Positive for: Leg Pain (left leg pain) Neurological: Positive for: Headache, Dizziness (not currently) Psych: Positive for: Anxiety Physical Exam - Reviewed Nursing Documentation Reviewed: Yes Vital Signs Reviewed: Yes - Physical Exam Comments: GENERAL APPEARANCE: Patient is awake, alert, oriented x 3, in obvious moderate pain from leg, speaking fast, anxious SKIN: Warm, dry; (-) cyanosis. HEAD: (-) swelling and tenderness, with no palpable bony defect. EYES: (-) conjunctival pallor, (-) scleral icterus, (-) nystagmus. ENMT: Mucous membranes moist. Nose: (-) tenderness. No oral trauma. Pharynx clear. Airway patent: (-) stridor. Full ROM of mandible without pain. NECK: (-) paracervical tenderness, (-) vertebral tenderness, (-) lymphadenopathy. CHEST AND RESPIRATORY: (-) chest wall tenderness. Lungs: (-) rales, (-) rhonchi, (-) wheezes; breath sounds equal bilaterally. HEART AND CARDIOVASCULAR: (-) irregularity; (-) murmur, (-) gallop. ABDOMEN AND GI: Soft; (-) tenderness. BACK: (+) diffuse lower back tenderness. (+) lateral hip tenderness EXTREMITIES: (-) deformity, (-) tenderness, (-) edema, (-) ecchymosis, (+) limitation of motion on Left lower extremity due to pain, distal pulses 2+. (-) calf tenderness; ambulating with limp due to pain, NVI NEURO AND PSYCH: Mental status as above. 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 EOMI. (-) facial asymmetry. Tongue and uvula midline. Strength 5/5 in all extremities. No gross sensory deficits. DTRs symmetric. - Laboratory Results Result Diagrams: 10/23/18 15:05 10/23/18 15:05 - ECG ECG: Positive for: Interpreted By Me, Viewed By Nv ECG Rhythm: Positive for: Normal QRS, Sinus Tachycardia. Negative for: ST/T Changes Rate: 100 O2 Sat by Pulse Oximetry: 98 (RA) Pulse Ox Interpretation: Normal Medical Decision Making Medical Decision Making: Time: 1448 Impression: leg pain Plan: --EKG --CMP --Troponin I --Chest xray x2 views --Lumbar spine xray --Toradol 30 mg IVP --Sodium Chloride 1,000 ml --monitor and storage bin tender --Saline lock --Urinalysis 09/19 Hip xray FINDINGS: . No fracture or lytic lesion seen. Mild degenerative type appearing subchondral appearing cystic are probable. Bilateral hip symmetrical joint space narrowing. Left L5-S1 asymmetrical hypertrophic facet arthrosis. Sacroiliac and pubic symphyseal joints unremarkable. Right eggshell type calcifications project lateral to the right greater trochanter-injection gluteal granulomas or right trochanteric calcific bursitis are some considerations. Patient's symptomatology is left-sided. IMPRESSION: No fracture or dislocation. Degenerative changes as above. Other findings as above. 17:15 pt has still not gone for xray reports she continues to have a lot of pain, will give Morphine 2mg IV [place] [employer] search as below for most recent rx, the rest is scanned 10/04/2018 09/04/2018 ZOLPIDEM TARTRATE 10 MG [id number] 30 AN SCI [id number] AMERI ([id number]) 1Other [place] 09/14/2018 09/03/2018 ACETAMINOPHEN-COD #4 [id number] 15 [place] MAR [id number] ISABELLE ([id number]) 0 36.0 MME Comm Ins [place] 17:30 pt went to Xray and told outer diameter technician she did not want any of them, she says that she has appointment in 2 days with neurologist/pain management for her back/leg and they will do images then, but if she does them now her insurance wont cover it and she has appointment with PMD on 11/01 and will get CXR then, but insurance wont cover 2. Pt is refusing images. Will cancel as pt's pain is chronic, and her VSS, EKG NSR, trop negative 18:20 on re eval pt reports feeling much better, she is able to ambulate with out pain at this time, pt's original BP and HR likely due to anxiety and severe pain, both have improved, EKG and blood work unremarkable. Discussed results, diagnosis, treatment, return precautions and f/u with pt who is understanding, in agreement and stable for dc Scribe Attestation: Documented by Wm Marx, acting as a scribe for JOSE MANUEL Thomas. Provider Scribe Attestation: All medical record entries made by the Scribe were at my direction and personally dictated by me. I have reviewed the chart and agree that the record accurately reflects my personal performance of the history, physical exam, medical decision making, and the department course for this patient. I have also personally directed, reviewed, and agree with the discharge instructions and disposition. Disposition - Clinical Impression Clinical Impression: Chronic left hip pain - Patient ED Disposition Is Patient to be Admitted: No Counseled Patient/Family Regarding: Studies Performed, Diagnosis, Need For Fo llowup - Disposition Referrals: Leonardo Sanchez MD [Medical Doctor] - Disposition: Routine/Home Disposition Time: 18:17 Condition: IMPROVED Additional Instructions: Penny por dejarnos cuidar de ti jaime. Simms nichole medicamentos scott se prescribi anteriormente. Nakul un seguimiento con nichole mdicos segn lo programado. La atencin mdica de emergencia que recibi hoy se dirigi a nichole sntomas agudos. Si le recetaron algn medicamento, llnelo y tmelo segn las indicaciones. Los sntomas pueden tardar varios pat en resolverse. Regrese al Departamento de Emergencias si nichole sntomas empeoran, no mejoran o si tiene otros problemas. Comunquese con burkett mdico dentro de 2 pat para blaze nueva evaluacin y nakul un seguimiento o llame a mary de los mdicos / clnicas a los que vallecillo sido referido y que figuran en el formulario de Informacin de visita al paciente que se incluye en burkett paquete de serenity. Lleve todos los documentos que recibi al momento del serenity junto con los medicamentos que est tomando para burkett visita de seguimiento. Nuestro tratamiento no puede reemplazar la atencin mdica continua por parte de un proveedor de atencin primaria (PCP) fuera del departamento de emergencias. Instructions: Osteoarthritis, Hip Pain (DC) Forms: [facility] (Greek) Print Language: CITIZEN OF [place] - POA Present On Arrival: None
[2018-10-23 15:27] LABS: ALB/GLOB RATIO 1.4 (1.0-2.1); ALBUMIN 4.9 g/dL (3.5-5.0); ALT/SGPT 53 U/L (9-52); AST/SGOT 54 U/L (14-36); BLOOD UREA NITROGEN 12 mg/dl (7-17); CALCIUM 10.2 mg/dL (8.4-10.2); GFR NON-AFRICAN AMERICAN > 60
[2018-10-23 15:42] VITALS: RESP 20
[2018-10-23 18:30] VITALS: BP 135/85
[2018-10-23 20:11] VITALS: PULSE 100; O2SAT 98
--- NOTE | 2018-10-24 10:35 | CARD ---
APPROVED REPORT Date of service: 10/23/2018 EKG Measurement Heart [id number] <Conclusion> Sinus tachycardia Otherwise normal ECG
== END 2018-10-23 18:21 | disposition home or self-care (01) ==
LOC: H.ER 14:07
DX: M25.552 Pain in left hip (principal); G89.29 Other chronic pain; F17.200 Nicotine dependence, unspecified, uncomplicated; I10 Essential (primary) hypertension; Z79.82 Long term (current) use of aspirin; E78.00 Pure hypercholesterolemia, unspecified
CPT/HCPCS: 80053; 84484; 85025; 93005; 96361; 96374; 96375; 99283; J1885; J2270; J7030